=== PATIENT | male | born 1940 | race Hispanic/Latino ===

== ENCOUNTER → 2023-10-01 | Outpatient (CLI) | payer MEDICARE, BC ==
[2023-10-01] MEDS: REGADENOSON 0.4 MG/5 ML PF SYG IVP ONE (11:59)
== END | disposition home or self-care (01) ==
LOC: SHCH 08:27
PROVIDERS: ATTEND Student in an Organized Health Care Education/Training Program
DX: Z95.5 Presence of coronary angioplasty implant and graft (principal)
CPT/HCPCS: 78452; 96374; 93017; J2785; A9500 ×2